=== PATIENT | female | born 1935 | race Caucasian/White ===

== ENCOUNTER → 2019-07-31 | Outpatient (CLI) | payer OTHER ==
[~2019-07-31] MED LIST: DILTIAZEM 24HR180 M1 PO; GLUCOPHAGE1000 MG PO; LIPITOR10 MG PO; METHOCARBAMOL500 M2 PO; NEURONTIN100 MG PO; TORSEMIDE10 MG PO; TYLENOL ARTHRI650 MG PO; XARELTO15 MG PO; ZESTRIL40 MG PO
== END ==
LOC: SJCVC 10:20 → SJCVCIMAG 10:20
PROVIDERS: ATTEND Internal Medicine Cardiovascular Disease
DX: I65.23 Occlusion and stenosis of bilateral carotid arteries (principal); I48.21 Permanent atrial fibrillation; R94.31 Abnormal electrocardiogram [ECG] [EKG]; I25.10 Atherosclerotic heart disease of native coronary artery without angina pectoris; E78.00 Pure hypercholesterolemia, unspecified; I10 Essential (primary) hypertension; R60.0 Localized edema; D68.59 Other primary thrombophilia; E11.9 Type 2 diabetes mellitus without complications; Z79.899 Other long term (current) drug therapy

== ENCOUNTER 2019-10-18 11:31 | Emergency (ER) | payer OTHER ==
[~2019-10-18] VITALS: Ht 162.6 cm; Wt 52.6 kg
[2019-10-18 13:02] LABS: CALCIUM 9.6 mg/dL (8.5-10.1); CREATININE 1.3 mg/dL (0.6-1.0); MAGNESIUM 1.9 mg/dL (1.8-2.4); POTASSIUM 4.8 mmol/L (3.5-5.1)
[2019-10-18] MEDS ORDERED: METHOCARBAMOL500 M2 PO (14:18)
[2019-10-18 14:23] VITALS: BP 128/77
[2019-10-24] MEDS ORDERED: METHOCARBAMOL500 M2 PO (13:12)
[2019-10-24] MEDS ORDERED: TORSEMIDE10 MG PO (13:13)
[2019-10-24] MEDS ORDERED: GLUCOPHAGE1000 MG PO (13:13)
[2019-10-24] MEDS ORDERED: ZESTRIL40 MG PO (13:13)
[2019-10-24] MEDS ORDERED: XARELTO15 MG PO (13:14)
[2019-10-24] MEDS ORDERED: LIPITOR10 MG PO (13:15)
[2019-10-24] MEDS ORDERED: DILTIAZEM 24HR180 M1 PO (13:15)
[2019-10-24] MEDS ORDERED: NEURONTIN100 MG PO (13:16)
[2019-10-24] MEDS ORDERED: TYLENOL ARTHRI650 MG PO (13:16)
== END 2019-10-18 14:23 | disposition home or self-care (01) ==
LOC: ER 11:31
PROVIDERS: Emergency Medicine
DX: M79.652 Pain in left thigh (principal); R60.0 Localized edema; M43.6 Torticollis; Z87.891 Personal history of nicotine dependence

== ENCOUNTER → 2019-10-26 | Outpatient (CLI) | payer OTHER ==
[~2019-10-26] VITALS: Ht 160 cm; Wt 52.6 kg
--- NOTE | 2019-10-27 17:07 | PATH ---
[facility] [address] [place] [address] PATHOLOGY RPT PROCEDURE Name: PITA PAULA Ravinder Room #: REG KAMINI Capps.#: [id number] Admission: 10/26/19 Date of : 31 Discharge: Report #: [id number] Path Case #: [id number] [facility] Accession Number: [id number] . 01 Material submitted: . small bowel - SMALL BOWEL BX . 01 Clinical history: . Weight loss, abnormal CT, hiatal hernia, esophagitis, gastritis. . 02 Diagnosis: Small bowel, R/O celiac disease, endoscopic biopsy: - Mild nonspecific chronic inflammation. - Negative for villous blunting or increase in intraepithelial lymphocytes. (IUV:esther; 10/27/2019) QMS 10/27/2019 1402 Local . 02 Electronically signed: . Sandi Bullard MD, Pathologist NPI- [id number] . 01 Gross description: . Received in formalin labeled "Pita Paula, small bowel BX re: wt loss r/o celiac disease" is a 1.3 x 0.3 x 0.1 cm aggregate of avila-brown soft tissue fragments. The specimen is submitted entirely in A1. ([facility]; 10/26/2019) [facility] 10/26/2019 1833 Local . 02 Pathologist provided ICD-10: K52.9 . 02 CPT . 086764 Specimen Comment: A courtesy copy of this report has been sent to [phone], [phone] Specimen Comment: [phone] Specimen Comment: Report sent to / DR GARVEY Performed at: [address], [place] [id number] MD Eric Gregg MD Phone: [phone] Performed at: [address] [id number] MD Sandi Bullard MD Phone: [phone]
--- NOTE | 2019-11-06 10:12 | P ---
[facility] [place] [address] PROCEDURE REPORT Name: BENJAMÍN VEE Room #: REG [facility]#: [id number] Admission: 10/26/19 Attend Phys: Juan Poon MD Discharge: Date of : 31 Report #: [id number] THIS REPORT FOR: cc: Malorie Greenberg MD, Melanie MD Thesing,Juan Tello MD ~ CC: Juan Greenberg MD DATE OF SERVICE: 10/26/2019 BRIEF HISTORY: The patient is an 84-year-old woman with a history of abdominal pain and weight loss of about 13 pounds. She had a CT, which revealed thickening of the stomach in particular cardia of the stomach. PREOPERATIVE DIAGNOSIS: Abnormal CT stomach and weight loss. POSTOPERATIVE DIAGNOSES: 1. Mild grade A esophagitis. 2. Small, less than 2 cm sliding type hiatus hernia. 3. Mild nonspecific gastritis. MEDICATIONS: Deep sedation with propofol per anesthesia. SPECIMEN: Small bowel biopsy to rule out celiac disease. ESTIMATED BLOOD LOSS: 3 mL. PROCEDURE: EGD with biopsy. FINDINGS: Prior to propofol sedation, procedure of upper endoscopy was discussed with the patient as well potential risks and its complications. She indicates she understands and desires to proceed. DESCRIPTION OF PROCEDURE: With the patient in left lateral decubitus position, the Olympus video endoscope was inserted in the cervical esophagus under direct vision without difficulty. Examination of this organ through its entire length revealed normal esophageal mucosa down the squamocolumnar junction. Squamocolumnar junction was inspected and noted to be unremarkable except for a few erosions consistent with a grade A esophagitis. No strictures or masses were seen. There was no evidence of Vargas mucosa. A small 2 cm sliding type hiatus hernia was intermittently seen. The scope was advanced fully into the stomach, was examined on end view as well as retroflexed views. There was a streaky antral gastritis. This has been noted in the past and previous biopsies were negative for H. pylori and those were not repeated today. Upon [facility] [address] [address] PROCEDURE REPORT Name: BENJAMÍN VEE Room #: REG [facility].#: [id number] Admission: 10/26/19 Attend Phys: Juan Poon MD Discharge: Date of : 31 Report #: [id number] retroflexion, the gastric mucosa was intact. There was no evidence of ulcers, mass, or lesion. In particular, the cardia of the stomach was unremarkable. A CT demonstrated thickness in the cardia, but none was seen endoscopically today. The pylorus, duodenal bulb and postbulbar duodenal sweep were all inspected and noted to be unremarkable. At that point, the scope was slowly withdrawn and careful circumferential views confirmed the above finding. Biopsies obtained of the small bowel to evaluate for celiac disease. CONDITION OF THE PATIENT UPON DISCHARGE: Following procedure, the patient drowsy, aroused and conversant and will be discharged home when fully ambulatory. INSTRUCTIONS TO THE PATIENT AND FAMILY AT THE TIME OF DISCHARGE: Findings as noted above. No evidence of neoplastic process or thickening of the gastric mucosa. As far as her nausea and vomiting, I do not see evidence of outlet obstruction or retained solids to suggest gastroparesis. At this point in time, we will have her use omeprazole 20 mg daily due to the esophagitis. If she continues to have difficulties, she is to return for followup in the office. She will otherwise return to the care of Dr. Malorie Greenberg. <ELECTRONICALLY SIGNED> By: Juan Poon MD 11/06/19 1012 0909 1038 Juan Poon MD /nt
== END | disposition home or self-care (01) ==
LOC: GI 06:54
PROVIDERS: ATTEND Specialist
DX: R93.3 Abnormal findings on diagnostic imaging of other parts of digestive tract (principal); R63.4 Abnormal weight loss; K52.9 Noninfective gastroenteritis and colitis, unspecified; K20.9 Esophagitis, unspecified; K44.9 Diaphragmatic hernia without obstruction or gangrene; I10 Essential (primary) hypertension; I48.91 Unspecified atrial fibrillation; E11.9 Type 2 diabetes mellitus without complications; Z98.890 Other specified postprocedural states; Z79.899 Other long term (current) drug therapy; Z87.891 Personal history of nicotine dependence; Z79.01 Long term (current) use of anticoagulants
CPT/HCPCS: 62110; 62900

== ENCOUNTER → 2020-01-31 | Outpatient (CLI) | payer OTHER | LOC: SJCVCIMAG 07:44 | PROVIDERS: ATTEND Internal Medicine Cardiovascular Disease | DX: I08.1 Rheumatic disorders of both mitral and tricuspid valves (principal); R94.31 Abnormal electrocardiogram [ECG] [EKG]; I49.3 Ventricular premature depolarization; I25.10 Atherosclerotic heart disease of native coronary artery without angina pectoris; I11.9 Hypertensive heart disease without heart failure; E78.00 Pure hypercholesterolemia, unspecified; I48.0 Paroxysmal atrial fibrillation; E11.9 Type 2 diabetes mellitus without complications; D68.59 Other primary thrombophilia; I65.23 Occlusion and stenosis of bilateral carotid arteries; I87.2 Venous insufficiency (chronic) (peripheral); Z79.899 Other long term (current) drug therapy ==

== ENCOUNTER 2020-03-03 17:16 | Emergency (ER) | payer OTHER ==
[~2020-03-03] VITALS: Ht 160 cm; Wt 49.0 kg
[2020-03-03 17:37] VITALS: BP 126/83
[2020-03-03 17:44] LABS: ABSOLUTE NEUTROPHILS 4.2 thou/uL (1.4-8.2); BASOPHILS 0.8 % (0.0-2.0); EOSINOPHILS 1.2 % (0.0-3.0); HEMATOCRIT 36.2 % (37.0-47.0); HEMOGLOBIN 11.8 gm/dL (12.0-15.0); MCH 32.2 pg (26.0-34.0); MCHC 32.7 g/dL (28.0-37.0); MCV 98.5 fL (80.0-100.0); MONOCYTES 7.5 % (1.0-8.0); PLATELET COUNT 244 thou/uL (150-400); POLYS 70.5 % (36.0-66.0); RBC 3.67 mil/uL (4.20-5.00); RDW 14.2 % (10.5-14.5)
[2020-03-03 17:59] LABS: CALCIUM 9.4 mg/dL (8.5-10.1); CREATININE 1.1 mg/dL (0.6-1.0); POTASSIUM 3.6 mmol/L (3.5-5.1)
[2020-03-03 18:05] LABS: ALBUMIN 4.1 g/dL (3.4-5.0); TOTAL BILIRUBIN 0.3 mg/dL (0.2-1.0); TOTAL PROTEIN 7.3 g/dL (6.4-8.2)
--- NOTE | 2020-03-04 07:55 | EKG ---
[facility] [place] [address] ELECTROCARDIOGRAM REPORT Name: BENJAMÍN VEE Room #: DEP [facility]#: [id number] Admission: 03/03/20 Attend Phys: Discharge: 03/03/20 Date of : 31 Report #: [id number] THIS REPORT FOR: cc: Malorie Greenberg MD, Melanie MD Lundgren,Zachary Parmar MD [facility] ~ THIS REPORT FOR: //name// [facility] ED Test Date: 2020-03-03 Test Time: 19:30:52 Pat Name: BENJAMÍN VEE Department: Room: Gender: Career Services Representative: [facility] : 1935 Requested By: Elva Mulligan Order Number: [id number] MD: Zachary Botello Measurements Intervals [place] Rate: 103 P: GA: QRS: -49 QRSD: 101 T: -22 QT: 388 QTc: 508 Interpretive Statements Atrial fibrillation Inferior infarct, age indeterminate No previous ECG available for comparison Electronically Signed On 03-04-2020 7:55:10 [employer] by Zachary Botello [email or web address] <ELECTRONICALLY SIGNED> By: Zachary Botello MD, [facility] 03/04/20 0755 29 29 Zachary Botello MD, FACC /EPI
== END 2020-03-03 20:00 | disposition home or self-care (01) ==
LOC: ER 17:16
PROVIDERS: Physician Assistant
DX: S00.03XA Contusion of scalp, initial encounter (principal); I10 Essential (primary) hypertension; E11.9 Type 2 diabetes mellitus without complications; E78.5 Hyperlipidemia, unspecified; I48.91 Unspecified atrial fibrillation; Z79.84 Long term (current) use of oral hypoglycemic drugs; Z79.899 Other long term (current) drug therapy; Z88.0 Allergy status to penicillin; Z88.2 Allergy status to sulfonamides; Z87.891 Personal history of nicotine dependence; W18.39XA Other fall on same level, initial encounter; Y93.89 Activity, other specified; Y92.89 Other specified places as the place of occurrence of the external cause; Y99.8 Other external cause status

== ENCOUNTER → 2020-11-26 | Outpatient (CLI) | payer OTHER | LOC: SJCVC 13:03 | PROVIDERS: ATTEND Internal Medicine Cardiovascular Disease | DX: R94.31 Abnormal electrocardiogram [ECG] [EKG] (principal); I44.4 Left anterior fascicular block; I48.21 Permanent atrial fibrillation; I25.10 Atherosclerotic heart disease of native coronary artery without angina pectoris; E78.00 Pure hypercholesterolemia, unspecified; I10 Essential (primary) hypertension; E11.9 Type 2 diabetes mellitus without complications; D68.59 Other primary thrombophilia; I65.23 Occlusion and stenosis of bilateral carotid arteries; Z87.81 Personal history of (healed) traumatic fracture; Z72.89 Other problems related to lifestyle; Z79.899 Other long term (current) drug therapy; Z88.0 Allergy status to penicillin; Z88.2 Allergy status to sulfonamides ==